=== PATIENT | female | born 1990 | race Caucasian/White ===

== ENCOUNTER 2020-03-15 11:56 | Observation (INO) | payer OTHER, SELFPAY ==
--- NOTE | 2020-03-15 12:37 | PC.NURSE ---
Dr Ruth Gagnon notified of adm for c/o of Palpitations. Patient states that she called the office and was sent here for evaluation. Order to obtain FHT's and send patient to ER for Evaluation.
--- NOTE | 2020-03-15 13:41 | PC.NURSE ---
1237 - T's 145 per Doppler
--- NOTE | 2020-03-17 16:46 | PM.OBTRLD ---
OB - Triage/Final Diagnosis Visit Information Reason for evaluation: other (palpitations)
--- NOTE | 2020-03-23 13:25 | PM.OBTRLD ---
OB - Triage/Final Diagnosis Visit Information Reason for evaluation: other ( heart palpitations during )
== END 2020-03-15 13:00 | disposition other institution (70) ==
PROVIDERS: Admitting Provider Obstetrics & Gynecology; Visit Provider Obstetrics & Gynecology
DX: R00.2 Palpitations (principal)
CPT/HCPCS: G0378; G0379

== ENCOUNTER 2020-03-15 12:47 | Emergency (ER) | payer OTHER, SELFPAY ==
--- NOTE | 2020-03-15 12:56 | ECG_ITS ---
Measurements Intervals [place] Rate: 85 P: 12 RI: 131 QRS: 14 QRSD: 81 T: 23 QT: 342 QTc: 407 Interpretive Statements SINUS RHYTHM BASELINE WANDER- I, II, V4-V6 NORMAL ECG Electronically Signed On 03-15-2020 13:04:52 CDT by Lukas Ayala D.O.
[2020-03-15 13:01] VITALS: BP 113/57; PULSE 88; RESP 18; TEMP 36.9; O2SAT 100
[2020-03-15 13:27] LABS: Basophils Percent Auto 0.3 % (0.2-1.2); Eosinophils Absolute Auto 0.1 K/mm3 (0-0.3); Hematocrit 33.4 % (37.0-47.0); Hemoglobin 11.8 g/dL (12.0-15.0); Immature Granulocyte Absolute 0.07 K/mm3 (0.00-0.031); Immature Granulocyte Percent A 0.7 % (0-0.5); Lymphocytes Absolute Auto 1.68 K/mm3 (0.9-3.2); Lymphocytes Percent Auto 16.8 % (18.3-44.2); Mean Corpuscular HGB Conc 35.3 g/dl (32-36); Mean Corpuscular Hemoglobin 33.1 pg (26-34); Mean Corpuscular Volume 93.6 fl (80-100); Mean Platelet Volume 10.5 fl (7.4-10.4); Monocytes Absolute Auto 0.5 K/mm3 (0.1-0.6); Monocytes Percent Auto 5.1 % (2.6-8.5); Neutrophils Absolute Auto 7.6 K/mm3 (1.3-6.7); Neutrophils Percent Auto 76.1 % (45.5-73.1); Platelet Count Result 266 k/mm3 (150-375); Red Blood Count 3.57 M/mm3 (4.2-5.4); Red Cell Distribution Width 12.9 % (11.5-14.5)
[2020-03-15 13:40] LABS: Alanine Aminotransferase 21 U/L (4-35); Albumin Level 4.2 g/dL (3.5-5.1); Alkaline Phosphatase 46 U/L (38-126); Aspartate Amino Transferase 18 U/L (14-36); Bilirubin,Total 0.3 mg/dL (0.2-1.3); Blood Urea Nitrogen 7 mg/dL (7-17); Calcium 8.9 mg/dL (8.4-10.2); Carbon Dioxide 24 mmol/L (22-30); Chloride 104 mmol/L (98-107); Estimated CRCL calculation 162 ml/min; Estimated Glomerular Filt Rate > 60; Glucose 81 mg/dL (65-105); Magnesium 1.9 mg/dL (1.6-2.3); Potassium 3.8 mmol/L (3.4-5.0); Sodium 135 mmol/L (137-145)
[2020-03-15 13:42] LABS: Add Urine Microscopic? YES; Appearance Urine Clear (Clear); Bacteria Urine 4+ /hpf; Bilirubin Urine Negative (Negative); Blood Urine Negative (Negative); Color Urine Straw (Yellow); Glucose Urine UA Negative (Negative); Ketones Urine Negative (Negative); Leukocyte Esterase Ur 1+ LEU/UL (Negative); Mucus Urine Rare /lpf; Nitrate Urine Negative (Negative); Protein Urine Negative (Negative); RBC Urine 0-2 /hpf (0-2); Specific Grav Ur 1.008 (1.001-1.035); Squamous Epithelial Cell Urine Few /hpf (Few); Urobilinogen Urine Negative mg/dL (<2.0)
[2020-03-15 13:53] VITALS: BP 113/79; PULSE 89; RESP 12; O2SAT 100
[2020-03-15 14:11] LABS: Thyroid Stimulating Hormone 0.568 uIU/mL (0.465-4.680)
--- NOTE | 2020-03-15 15:12 | ED.ARRPALP ---
HPI - Arrhythmia/Palpitations General Chief Complaint: Arrhythmia/Palpitations Stated Complaint: Heart Palpitations from OB Time Seen by Provider: 03/15/20 14:44 Source: patient Mode of arrival: ambulatory Limitations: no limitations History of Present Illness HPI narrative: This is a 29 year old about 20 weeks that presents to the ER for palpitations x 3 days. Reports she has had palpitations a couple of times over the last couple of days. They are non sustained and do not cause any chest pain, lightheadedness or shortness of breath. Otherwise has no complaints. Denies fever, pelvic cramping or vaginal bleeding. Related Data Allergies Allergy/AdvReac Type Severity Reaction Status Date / Time No Known Allergies Allergy Verified 03/15/20 13:51 Review of Systems Review of Systems: Narrative: CONSTITUTIONAL: Denies fever CARDIOVASCULAR: Reports palpitations. Denies chest pain, or edema. RESPIRATORY: Denies dyspnea. GASTROINTESTINAL: Denies abdominal pain GENITOURINARY: Denies dysuria or hematuria. All systems reviewed & are unremarkable except as noted in HPI and below PMFSH Social History Social History (Updated 03/15/20 @ 15:15 by Erinn Michael PA-C) Smoking status: Never smoker Substance use: never Exam Narrative: Exam Narrative: GENERAL: Well-appearing, well-nourished, and in no acute distress. HEAD: Normocephalic, atraumatic. EYES: EOMI. NECK: No carotid bruits or JVD CHEST: Clear to auscultation. No respiratory distress. No wheezes rales or rhonchi HEART: Regular rate and rhythm. No murmur heard. Normal peripheral pulses. EXTREMITIES: Normal range of motion. No edema. SKIN: Warm, dry, no rash. NEURO: No focal deficits. Alert and oriented x3. PSYCH: Normal mood and affect Course Consultations Consultation #1: Spoke with patient's OB about work-up (Dr. Hamilton). Reports palpitations can be very common in mid and suspect these will resolve on their own. Would like her to stop caffeine use to see if this helps. Will follow-up with patient in clinic. Date: 03/15/20 Time: 15:50 Vital Signs Vital signs: Vital Signs Temperature 98.5 F 03/15/20 13:01 Pulse Rate 88 03/15/20 13:01 Respiratory Rate 18 03/15/20 13:01 Blood Pressure 113/57 L 03/15/20 13:01 Pulse Oximetry 100 03/15/20 13:01 Temperature 98.5 F 03/15/20 13:01 Pulse Rate 89 03/15/20 13:53 Respiratory Rate 12 03/15/20 13:53 Blood Pressure 113/79 03/15/20 13:53 Pulse Oximetry 100 03/15/20 13:53 MDM - Arrhythmia/Palpitations MDM Narrative Medical decision making narrative: Patient presents to the emergency department for intermittent palpitations over the last couple of days. These do not seem sustained and patient does not report any chest pain, shortness of breath or lightheadedness with them. Vitals are normal. Patient has been in sinus rhythm while in the ED. CBC with mild normocytic anemia. Metabolic panel without acute changes. TSH is normal. UA with a few white blood cells and bacteria. Patient will be started on an antibiotic for asymptomatic bacteriuria of . EKG is normal. Patient updated on case findings. Spoke with patient's OB about work-up. Reports palpitations can be very common in mid and suspect these will resolve on their own. Would like her to stop caffeine use to see if this helps. Will follow-up with patient in clinic. Patient is stable and felt appropriate for further outpatient evaluation. She was given warnings to return to the ER Lab Data Attestation: I reviewed the patient's lab results. Result diagrams: 03/15/20 13:11 03/15/20 13:11 Labs: Lab Results 03/15/20 03/15/20 03/15/20 Range/Units 13:11 13:11 13:11 WBC 10.0 (4.5-10.0) K/mm3 RBC 3.57 L (4.2-5.4) M/mm3 Hgb 11.8 L (12.0-15.0) g/dL Hct 33.4 L (37.0-47.0) % MCV 93.6 (80-100) fl MCH 33.1 (26-34) pg MCHC 35.3 (32-3
[2020-03-15 15:57] VITALS: BP 103/50; PULSE 92; RESP 19; O2SAT 100
== END 2020-03-15 15:58 | disposition home or self-care (01) ==
PROVIDERS: Emergency Provider Emergency Medicine
DX: O26.892 Other specified pregnancy related conditions, second trimester (principal); R00.2 Palpitations; Z3A.20 20 weeks gestation of pregnancy
CPT/HCPCS: 36415; 80053; 81001; 83735; 84443; 85025; 93005; 99283

== ENCOUNTER 2020-05-14 09:30 | Outpatient (RCR) | payer OTHER, SELFPAY ==
[2020-05-14] MEDS: RHO(D) IMMUNE GLOBULIN 300 MCG SYRINGE IM (15:49)
== END 2020-08-12 23:59 | disposition home or self-care (01) ==
LOC: ANHLAB 09:30
PROVIDERS: Visit Provider Obstetrics & Gynecology
DX: Z29.13 Encounter for prophylactic Rho(D) immune globulin (principal); O36.0990 Maternal care for other rhesus isoimmunization, unspecified trimester, not applicable or unspecified; Z3A.00 Weeks of gestation of pregnancy not specified
CPT/HCPCS: 36415; 85461; 90384; 96372; J2790

== ENCOUNTER 2020-07-08 10:23 | Outpatient (CLI) | payer OTHER, SELFPAY ==
--- NOTE | ~2020-07-08 | US_ITS ---
EXAMINATION: US OB BPP wo non-stress DATE: 07/08/2020 11:58 INDICATION: Decelerations during third trimester TECHNIQUE: Real-time pelvic ultrasound was performed. The interpreting radiologist was not present fo r the study. COMPARISON: None. FINDINGS: There is a single living fetus in vertex presentation. The placenta is posterior/fundal. heart rate is 126 beats per minute (bpm). Biophysical profile performed by the technologist: breathing (30 sec sustained breathing in 30 minutes): 2 out of 2 movement (3 gross body movements in 30 minutes): 2 out of 2 tone (one episode of wgeadel-iitcnmvjg-[id number] limb movement): 2 out of 2 Amniotic fluid pocket (2 cm): 2 out of 2 Total score: 8 out of 8 IMPRESSION: 1. Single living fetus in vertex presentation. 2. Biophysical profile 8 out of 8. Reviewed, dictated and finalized at location B.
[2020-07-08 11:31] VITALS: BP 126/87; PULSE 96
--- NOTE | 2020-07-08 12:16 | PC.NURSE ---
1117- called,informed pt came in for leaking fluid. ROM plus was negative and SVE was closed. Informed pt had a 6 minute contraction with a decel, NST reactive after decel. Order received to do BPP and if 8/8 may be discharged home with labor precautions
== END 2020-07-08 10:24 | disposition home or self-care (01) ==
LOC: ANHOBOP 11:24
PROVIDERS: Visit Provider Obstetrics & Gynecology
DX: O41.8X90 Other specified disorders of amniotic fluid and membranes, unspecified trimester, not applicable or unspecified (principal)
CPT/HCPCS: 59025; 76819; 84112

== ENCOUNTER 2020-07-25 01:31 | Inpatient (IN) | payer OTHER, SELFPAY ==
[2020-07-25] VITALS (112 sets, daily range): BP systolic 92–159; BP diastolic 49–140; PULSE 63–271; RESP 16; TEMP 36.3–37.4; O2SAT 81–100; BMI 30.6
--- NOTE | 2020-07-25 01:31 | LDADM ---
This patient, Dina Valadez, was admitted to Labor/Delivery/Recovery 107 on 07/25/20 at 01:31. Plans for labor, pain management and were discussed with patient. Patient/family oriented to hospital policies and general routines including ID bracelet, bed and alarms, visiting hours, pain management, procedures, bathroom and other care routines, personal items, smoking policy, room service/diet and guest tray routines, infant security routines, and visiting hours. Patient/Family are encouraged to report perceived risks to care and to ask questions if they do not understand what they are told or what they should do. See OBIX for further documentation.
[2020-07-25 02:16] LABS: Basophils Absolute Auto 0.1 K/mm3 (0.0-0.1); Basophils Percent Auto 0.4 % (0.2-1.2); Eosinophils Absolute Auto 0.3 K/mm3 (0-0.3); Eosinophils Percent Auto 1.8 % (0-4.4); Hematocrit 37.8 % (37.0-47.0); Hemoglobin 13.2 g/dL (12.0-15.0); Immature Granulocyte Absolute 0.16 K/mm3 (0.00-0.031); Immature Granulocyte Percent A 1.1 % (0-0.5); Lymphocytes Absolute Auto 3.06 K/mm3 (0.9-3.2); Lymphocytes Percent Auto 21.7 % (18.3-44.2); Mean Corpuscular HGB Conc 34.9 g/dl (32-36); Mean Corpuscular Hemoglobin 32.7 pg (26-34); Mean Corpuscular Volume 93.6 fl (80-100); Mean Platelet Volume 12.1 fl (7.4-10.4); Monocytes Absolute Auto 1.1 K/mm3 (0.1-0.6); Monocytes Percent Auto 7.5 % (2.6-8.5); Neutrophils Absolute Auto 9.5 K/mm3 (1.3-6.7); Neutrophils Percent Auto 67.5 % (45.5-73.1); Platelet Count Result 202 k/mm3 (150-375); Red Blood Count 4.04 M/mm3 (4.2-5.4); White Blood Count 14.1 K/mm3 (4.5-10.0)
[2020-07-25] MEDS: LACTATED RINGERS 1,000 ML 125 ML IV CONT ×2 (02:18→05:28)
--- NOTE | 2020-07-25 02:51 | WPDANESEPP ---
Anes - Eval Pre Procedure Procedure: labor epidural Date/Time: 07/25/20 02:51 Surgeon: luis carlos Pre Op Diagnosis: Ernesto mercado Patient Data Age: 29 Gender: F Height: 1.68 m Weight: 86 kg Last Vital Signs Pulse 76 07/25/20 02:30 BP 126/110 H 07/25/20 02:45 Allergies Allergy/AdvReac Type Severity Reaction Status Date / Time No Known Allergies Allergy Verified 07/06/20 15:40 Home Medications Medication Instructions Recorded Confirmed Type PNV cmb#95-ferrous fumarate-FA 1 tablet PO DAILY 07/06/20 07/25/20 History [] fluticasone propionate [Flonase 1 spray INTRANASAL DAILY 07/25/20 07/25/20 History Allergy Relief] Laboratory Tests 07/25/20 07/25/20 02:09 02:09 WBC 14.1 K/mm3 H K/mm3 (4.5-10.0) RBC 4.04 M/mm3 L M/mm3 (4.2-5.4) Hgb 13.2 g/dL g/dL (12.0-15.0) Hct 37.8 % % (37.0-47.0) MCV 93.6 fl fl (80-100) MCH 32.7 pg pg (26-34) MCHC 34.9 g/dl g/dl (32-36) RDW 13.0 % % (11.5-14.5) Plt Count 202 k/mm3 k/mm3 (150-375) MPV 12.1 fl H fl (7.4-10.4) Immature Gran % (Auto) 1.1 % H % (0-0.5) Neut % (Auto) 67.5 % % (45.5-73.1) Lymph % (Auto) 21.7 % % (18.3-44.2) [place] % (Auto) 7.5 % % (2.6-8.5) Eos % (Auto) 1.8 % % (0-4.4) Baso % (Auto) 0.4 % % (0.2-1.2) Lymph # (Auto) 3.06 K/mm3 K/mm3 (0.9-3.2) [place] # (Auto) 1.1 K/mm3 H K/mm3 (0.1-0.6) Eos # (Auto) 0.3 K/mm3 K/mm3 (0-0.3) Baso # (Auto) 0.1 K/mm3 K/mm3 (0.0-0.1) Abs Immat Gran (auto) 0.16 K/mm3 H K/mm3 (0.00-0.031) Absolute Neuts (auto) 9.5 K/mm3 H K/mm3 (1.3-6.7) Absolute Nucleated RBC 0.0 K/mm3 K/mm3 (0.0-0.012) Nucleated RBC % 0.0 % % (0.0-0.2) RPR Pending Patient hx anesthesia problems: none Family hx anesthesia problems: none [facility] Social History Social History (Updated 03/15/20 @ 15:15 by Erinn Michael PA-C) Smoking status: Never smoker Substance use: never Spiritual care concerns: No Exam Day of Procedure 07/25/20 02:51
--- NOTE | 2020-07-25 06:03 | WPDOBADMIT ---
Obstetrics - Admit Note Admission Note: record reviewed. Additions to the history and/or subsequent changes in the physical findings follow. 29 y/o G1 at 39 weeks here with gush of clear fluid at home. SROM was diagnosed. She was admitted and received an epidural. Labor has progressed rapidly and without stimulation. AVSS NST reactive TOCO: contractions every 2-4 min ABD soft, nontender, gravid, vertex EXT nontender Cervix C/+2 A: IUP at term with labor. P: Begin pushing.
[2020-07-25] MEDS: OXYTOCIN 30 UNITS/NS 500 ML 30 UNITS/500 ML BAG 999 UNITS IV CONT (06:40)
--- NOTE | 2020-07-25 06:57 | P.PCNOB_ITS ---
OB - Delivery Note Procedure Delivery date: 07/25/20 Procedure: Induction method: none Delivery monitor: external FHT and external uterine Route of delivery: Laceration description: Perineal - 2nd Degree Delivery repair: vicryl (3-0) Specimen: Yes (cord blood, placenta) Estimated blood loss (mL): 165 Anesthesia type: Epidural Disposition: PACU Complications: None Narrative: 29 y/o G1 at 39 weeks gestation who presented to the hospital with complaint of gush of clear fluid. SROM was diagnosed and she was admitted. She received an epidural for pain control. Her labor progressed and her cervix dilated completely. She pushed with good effort and delivered the 's head to the perineum, followed by the body. The nose and mouth were bulb suctioned. After a delay, the cord was clamped and cut. The was handed off the field. Cord blood was collected. The placenta delivered spontaneously and was grossly normal in appearance. The usual 3 vessel cord was noted. A second degree midline perineal laceration was sustained. This was reapproximated using 3 0 Vicryl in the usual layered fashion. Excellent hemostasis resulted as did excellent reapproximation of the normal anatomy. Needle and instrument counts were correct. The patient was taken to recovery room in stable condition. The went to the nursery in stable condition. I was present and scrubbed for the entire delivery. [place] Baby Date of : 07/25/20 Time of : 06:35 Weeks of gestation at delivery: 39 gender: Male Weight (pounds): 7 Weight (ounces): 5 presentation: vertex position: Left Occiput Anterior Placenta delivery description: Spontaneous and Normal Configuration cord vessel description: 3 Vessels score one minute: 9 score five minutes: 9
--- NOTE | 2020-07-25 06:59 | PM.OBDSVD ---
DS: Admitting Diagnosis Admitting Diagnosis Admitting Diagnosis: SROM DS: Discharge Diagnosis Discharge Diagnosis (1) (normal spontaneous vaginal delivery): Code(s): O80 - Encounter for full-term uncomplicated delivery Status: Acute OB - DS: Summary OB Procedures : None OB Procedures Intrapartum: Spontaneous Vag Delivery OB Procedures: : None Time Spent with Patient Time attestation: Total time spent providing and/or coordinating discharge services: DS: Data Data Completed and Pending Labs on day of discharge: Labs from last 24 hours 07/25/20 07/25/20 07/25/20 02:09 02:09 02:09 WBC 14.1 H RBC 4.04 L Hgb 13.2 Hct 37.8 MCV 93.6 MCH 32.7 MCHC 34.9 RDW 13.0 Plt Count 202 MPV 12.1 H Immature Gran % (Auto) 1.1 H Neut % (Auto) 67.5 Lymph % (Auto) 21.7 [place] % (Auto) 7.5 Eos % (Auto) 1.8 Baso % (Auto) 0.4 Lymph # (Auto) 3.06 [place] # (Auto) 1.1 H Eos # (Auto) 0.3 Baso # (Auto) 0.1 Abs Immat Gran (auto) 0.16 H Absolute Neuts (auto) 9.5 H Absolute Nucleated RBC 0.0 Nucleated RBC % 0.0 RPR Pending Blood Type A Negative Antibody Screen Negative Discharge Plan Discharge Attending physician on discharge: Fer Hamilton Discharging Clinician: Fer Hamilton Patient Disposition: Home, Self-Care Activity: pelvic rest Diet: regular Discharge Instructions: Call or return if temperature above 100.4? F, increased abdominal pain, increased vaginal bleeding or any new problems. Stand Alone Forms: General Discharge Information Follow-up/Referrals: Fer Hamilton MD [Physician] - (6 weeks) Discharge Medications: New ibuprofen 600 mg tablet 600 mg PO Q6H PRN (Reason: cramps) Qty: 30 RF: 0 No Action PNV cmb#95-ferrous fumarate-FA [] 28 mg iron- 800 mcg Tablet 1 tablet PO DAILY RF: 0 fluticasone propionate [Flonase Allergy Relief] 50 mcg/actuation [place],Suspension 1 spray INTRANASAL DAILY RF: 0 Date of admission: 07/25/20 01:31 Primary Care Provider: PHYSICIAN,MENTAL MEASUREMENTS TEACHER Admitting Provider: Fer Hamilton Attending physician on admission: Fer Hamilton
[2020-07-25] MEDS: OXYTOCIN 30 UNITS/NS 500 ML 30 UNITS/500 ML BAG 125 UNITS IV CONT (07:16)
[2020-07-25] MEDS: IBUPROFEN 600 MG TABLET PO ×2 (09:20→16:08)
--- NOTE | 2020-07-25 17:37 | PC.NURSE ---
1022 Pt admitted to room 282 from labor and delivery after vaginal delivery of viable male at [address] Hamilton. Mother is a and is choosing to breast feed infant. /FOB present; Couple oriented to room, staffing and procedures; admission folder reviewed; Pt's VSS and assessment WNL.
[2020-07-26] MEDS: IBUPROFEN 600 MG TABLET PO ×3 (01:58→14:30)
[2020-07-26] MEDS: DOCUSATE SODIUM 100 MG CAPSULE PO (02:01)
[2020-07-26 04:31] LABS: Hematocrit 30.4 % (37.0-47.0); Hemoglobin 10.5 g/dL (12.0-15.0)
[2020-07-26 07:45] VITALS: BP 114/73; PULSE 85; RESP 18; TEMP 36.3; O2SAT 100
[2020-07-26] MEDS: MULTIVIT/MIN/PREN/FOL AC/IRON TABLET 1 TAB PO (07:45)
[2020-07-26] MEDS: DIBUCAINE 1% OINTMENT 30 GM TUBE 1 APPLIC TOPICAL (07:48)
--- NOTE | 2020-07-26 08:31 | WPDANLDPN2 ---
Anes-Prog Note L&D Date/Time: 07/26/20 08:31 Comfortable throughout: labor and delivery Neuraxial method: epidural Epidural/Spinal procedure site: clean & non-tender Neuro status: Neuro function grossly intact. Cardiovascular status: normal Respiratory status: normal Airway patency: baseline Mental status: baseline Post-Op hydration status: normal Vital Signs: Last Vital Signs Temp 36.7 C 07/25/20 18:33 Pulse 77 07/25/20 18:33 Resp 16 07/25/20 18:33 BP 112/69 07/25/20 18:33 Pulse Ox 99 07/25/20 10:30 Pain score (VAS): 11/07 I/O: Intake & Output 07/25/20 07/26/20 07/26/20 23:59 07:59 15:59 Intake Total 500 Balance 500 Post-procedural complaints: none Patient feedback: Patient satisfied with anesthetic care.
[2020-07-26] MEDS: TETANUS,DIPHTHERIA,AC PERTUSSIS ADULT (0.5 ML) BOOSTRIX IM (11:12)
[2020-07-26 11:43] LABS: Rapid Plasma Reagin Non-Reactive (NonReactive)
--- NOTE | 2020-07-26 12:00 | PM.OBPNVD ---
OB - PN: Subj Subjective Date/time seen: 07/26/20 12:00 Narrative: Pain OK. Would like circumcision for son. OB - PN: Obj Data Labs CBC & Chem 7: 07/26/20 04:03 Labs: Laboratory Results - last 24 hr 07/25/20 07/26/20 02:09 04:03 Hgb 10.5 L Hct 30.4 L RPR Non-reactive OB - PN A/P Plan Comments: A: PPD#1, doing well. P: Routine care. Reviewed circ. Exam Psych: Other: AVSS ABD soft, nontender, fundus firm EXT nontender
[2020-07-26 19:15] VITALS: BP 123/78; PULSE 83; RESP 18; TEMP 36.6; O2SAT 98
[2020-07-26] MEDS: ACETAMINOPHEN 325 MG TABLET 650 MG PO (19:52)
[2020-07-27] MEDS: IBUPROFEN 600 MG TABLET PO (01:24)
[2020-07-27 08:10] VITALS: BP 123/71; PULSE 84; RESP 16; TEMP 37.2; O2SAT 100
--- NOTE | 2020-07-27 08:51 | P.PNOB_ITS ---
OB - PN: Subj Subjective Date/time seen: 07/27/20 08:51 Narrative: Pain OK. Would like to go home. Baby's blood type Aneg. OB - PN: Obj Data Labs CBC & Chem 7: 07/26/20 04:03 Labs: Laboratory Results - last 24 hr 07/25/20 02:09 RPR Non-reactive OB - PN A/P Plan Comments: A: PPD#2, doing well. P: Home to f/u 6 weeks. Exam 2 Psych: Other: AVSS ABD soft, nontender, fundus firm EXT nontender
[2020-07-29 08:26] VITALS: BP 136/88; PULSE 82; RESP 18; TEMP 36.7; O2SAT 100
== END 2020-07-27 10:51 | disposition home or self-care (01) | DRG 807 ==
LOC: ANHLDR 07:00 → ANHOB2 10:25
PROVIDERS: Admitting Provider Obstetrics & Gynecology; Visit Provider Obstetrics & Gynecology
DX: O62.3 Precipitate labor (principal); Z37.0 Single live birth; Z3A.39 39 weeks gestation of pregnancy; O70.1 Second degree perineal laceration during delivery
CPT/HCPCS: 36415; 85014; 85018; 85025; 86592; 86850; 86900; 86901; 90715; A9270; J2590; J2795; J7120

== ENCOUNTER 2021-02-07 16:50 | Emergency (ER) | payer OTHER, SELFPAY ==
--- NOTE | ~2021-02-07 | XR_ITS ---
XR chest 2V DATE: 02/07/2021 17:37 INDICATION: Dizziness for one week TECHNIQUE: PA and lateral views COMPARISON: None FINDINGS: Normal heart size. No hilar or mediastinal enlargement. No pulmonary infiltrate or consolid ation, pleural effusion or pulmonary vascular congestion or pneumothorax. Included skeletal structures are unremarkable. IMPRESSION: Negative chest Reviewed, dictated and finalized at location A. IMPRESSION: Negative chest
--- NOTE | ~2021-02-07 | CT_ITS ---
EXAMINATION: CT brain wo con DATE: 02/07/2021 18:03 INDICATION: Fall. Loss of consciousness. TECHNIQUE: Computed tomography (CT) of the head was performed without intravenous contrast. The mA wa s adjusted according to patient size. Iterative reconstruction technique was employed. Exam dose: 68 1.00 mGy-cm total exam DLP. COMPARISON: None FINDINGS: No intracranial mass lesion or hemorrhage or cerebrovascular accident is evident. No midlin e shift or mass effect effect. Normal ventricular size. Normal urbano-white matter differentiation. No subdural or epidural hematoma. No fracture or bone destruction of the cranial vault. Included paranasal sinuses and mastoid air cell s IMPRESSION: No significant abnormality Reviewed, dictated and finalized at Location A. Reviewed, dictated and finalized at location A. IMPRESSION: No significant abnormality
--- NOTE | 2021-02-07 17:03 | ECG_ITS ---
Measurements Intervals [place] Rate: 66 P: 40 NM: 131 QRS: 31 QRSD: 89 T: 41 QT: 399 QTc: 420 Interpretive Statements SINUS RHYTHM NORMAL ECG Electronically Signed On 02-08-2021 8:00:37 CDT by Lukas Ayala D.O.
[2021-02-07 17:08] VITALS: BP 121/64; PULSE 98; RESP 18; TEMP 37.2; O2SAT 100
[2021-02-07 17:22] LABS: Basophils Absolute Auto 0.1 K/mm3 (0.0-0.1); Basophils Percent Auto 0.8 % (0.2-1.2); Eosinophils Absolute Auto 0.2 K/mm3 (0-0.3); Eosinophils Percent Auto 3.5 % (0-4.4); Hematocrit 39.9 % (37.0-47.0); Hemoglobin 13.6 g/dL (12.0-15.0); Immature Granulocyte Absolute 0.01 K/mm3 (0.00-0.031); Immature Granulocyte Percent A 0.2 % (0-0.5); Lymphocytes Absolute Auto 1.61 K/mm3 (0.9-3.2); Lymphocytes Percent Auto 25.3 % (18.3-44.2); Mean Corpuscular HGB Conc 34.1 g/dl (32-36); Mean Corpuscular Hemoglobin 31.3 pg (26-34); Mean Corpuscular Volume 91.7 fl (80-100); Mean Platelet Volume 10.1 fl (7.4-10.4); Monocytes Absolute Auto 0.5 K/mm3 (0.1-0.6); Monocytes Percent Auto 7.5 % (2.6-8.5); Neutrophils Percent Auto 62.7 % (45.5-73.1); Platelet Count Result 305 k/mm3 (150-375); Red Blood Count 4.35 M/mm3 (4.2-5.4); Red Cell Distribution Width 12.8 % (11.5-14.5); White Blood Count 6.4 K/mm3 (4.5-10.0)
[2021-02-07 17:35] LABS: Alanine Aminotransferase 20 U/L (4-35); Albumin Level 4.7 g/dL (3.5-5.1); Alkaline Phosphatase 60 U/L (38-126); Anion Gap 7 mmol/L (8-16); Aspartate Amino Transferase 20 U/L (14-36); Bilirubin,Total 0.7 mg/dL (0.2-1.3); Blood Urea Nitrogen 11 mg/dL (7-17); Calcium 9.1 mg/dL (8.4-10.2); Carbon Dioxide 28 mmol/L (22-30); Chloride 105 mmol/L (98-107); Estimated CRCL calculation 108 ml/min; Estimated Glomerular Filt Rate > 60; Glucose 86 mg/dL (65-105); Potassium 4.1 mmol/L (3.4-5.0); Sodium 140 mmol/L (137-145)
[2021-02-07 18:29] LABS: Add Urine Microscopic? YES; Appearance Urine Cloudy (Clear); Bilirubin Urine Negative (Negative); Blood Urine Negative (Negative); Color Urine Yellow (Yellow); Glucose Urine UA Negative (Negative); Ketones Urine Trace mg/dL (Negative); Leukocyte Esterase Ur 1+ LEU/UL (Negative); Nitrate Urine Negative (Negative); Protein Urine Negative (Negative); Specific Grav Ur 1.006 (1.001-1.035); Urobilinogen Urine Negative mg/dL (<2.0)
--- NOTE | 2021-02-07 18:33 | ED.GENADULT ---
HPI - General Adult General Chief complaint: Dizziness Stated complaint: Fall, Dizzy Time Seen by Provider: 02/07/21 17:27 History of Present Illness HPI narrative: Patient is a 30-year-old female who presents to the ER with dizziness and fall. Patient was walking down the steps carrying laundry when she woke up at the bottom with her legs on the steps and her face on the ground. She reports she has been feeling dizzy for the last week since being started on Lexapro. She was started on this for depression which is been chronic and untreated but is worsened over the last 6 months since having her child. Patient had previously been having thoughts of self-harm but those are no longer present. She only really has sense of depression and worthlessness. No active plan. Her is present and keenly attentive to what has been going on with her. Patient reports since starting the medication she is also had decreased appetite and has not been eating this also correlates with when she stopped breast-feeding her son. After the fall today she is experiencing minor headache. No change in vision or hearing. She has no numbness or tingling to an arm or leg. She has some aching in her right elbow but maintains full range of motion. Patient denies any racing the heart or previous syncope. Related Data Home Medications Medication Instructions Recorded [facility]irmed [facility]FA 1 tablet PO DAILY 07/06/20 07/25/20 [] fluticasone propionate [Flonase 1 spray INTRANASAL DAILY 07/25/20 07/25/20 Allergy Relief] Allergies Allergy/AdvReac Type Severity Reaction Status Date / Time No Known Allergies Allergy Verified 07/06/20 15:40 Review of Systems Review of Systems: All systems reviewed & are unremarkable except as noted in HPI and below Constitutional: Constitutional: Denies chills, Denies fever(s) and Denies weakness Cardiovascular: Cardiovascular: Denies chest pain and Denies rapid heart rate Gastrointestinal: Gastrointestinal: Denies abdominal pain, Denies nausea and Denies vomiting Neurologic: Reports dizziness, Reports syncope, Reports headache(s), Denies focal weakness and Denies numbness Psychiatric: Psychiatric: Denies anxiety, Reports depression, Denies homicidal ideation and Denies suicidal ideation [facility] Past Medical History Medical History (Updated 02/07/21 @ 20:43 by Kevon Ledezma MD) Depression Surgical History Surgical History (Updated 02/07/21 @ 18:36 by Kevon Ledezma MD) No pertinent past surgical history Family History Family History Grandparent Heart disease TIA (transient ischemic attack) Father Diabetes type 2, controlled Mother Familial tremor Social History Social History (Updated 03/15/20 @ 15:15 by Erinn Michael PA-C) Smoking status: Never smoker Substance use: never Spiritual care concerns: No Exam Narrative: Exam Narrative: GENERAL: Well-appearing, well-nourished, and in no acute distress. HEAD: Normocephalic, atraumatic. EYES: PERRL and EOMI. CHEST: Clear to auscultation. No respiratory distress. HEART: Regular rate and rhythm. Normal peripheral pulses. ABDOMEN: Soft, nontender, nondistended. EXTREMITIES: Normal range of motion. No edema. SKIN: Warm, dry, no rash. NEURO: Alert and oriented x3. PSYCH: Depressed mood with appropriate insight, tearful. Course Course Emergency Course: Improving with IV fluids. Would recommend discontinuing Lexapro and talking to her PCP. Also treat UTI with Macrobid. First dose here. Vital Signs Vital signs: Vital Signs Temperature 98.9 F 02/07/21 17:08 Pulse Rate 98 02/07/21 17:08 Respiratory Rate 18 02/07/21 17:08 Blood Pressure 121/64 02/07/21 17:08 Pulse Oximetry 100 02/07/21 17:08 Temperature 98.9 F 02/07/21 17:08 Pulse Rate 86 02/07/21 19:03 Respiratory Rate 18 02/07/21 17:08 Blood Pressure 11
[2021-02-07 18:49] LABS: Squamous Epithelial Cell Urine Moderate /hpf (Few); WBC Urine 16-20 /hpf (0-3)
[2021-02-07 18:50] LABS: Bacteria Urine Trace /hpf
[2021-02-07 18:59] VITALS: BP 112/62; PULSE 57
[2021-02-07 19:02] VITALS: BP 113/71; PULSE 65
[2021-02-07 19:03] VITALS: BP 116/73; PULSE 86
[2021-02-07] MEDS: SODIUM CHLORIDE 0.9% IV 1,000 ML 999 ML IV CONT (19:47)
[2021-02-07] MEDS: NITROFURANTOIN MONOHYD MACROCR 100 MG CAP PO (20:51)
[2021-02-07 20:58] VITALS: BP 100/70; PULSE 60; RESP 16; O2SAT 100
== END 2021-02-07 21:00 | disposition home or self-care (01) ==
PROVIDERS: Emergency Provider Emergency Medicine; PCP Nurse Practitioner Family
DX: R42 Dizziness and giddiness (principal); N39.0 Urinary tract infection, site not specified; F32.9 Major depressive disorder, single episode, unspecified; W10.9XXA Fall (on) (from) unspecified stairs and steps, initial encounter
CPT/HCPCS: 36415; 70450; 71046; 80053; 81001; 85025; 87086; 93005; 96360; 99284; A9270; J7030

== ENCOUNTER 2021-06-12 08:00 | Outpatient (RCR) | payer OTHER, SELFPAY ==
[2021-06-12] MEDS: RHO(D) IMMUNE GLOBULIN 300 MCG/2 ML SYRINGE IM (08:58)
== END 2021-09-07 23:59 | disposition home or self-care (01) ==
LOC: ANHLAB 08:00
PROVIDERS: PCP Nurse Practitioner Family; Visit Provider Obstetrics & Gynecology
DX: O03.9 Complete or unspecified spontaneous abortion without complication (principal); Z29.13 Encounter for prophylactic Rho(D) immune globulin; O36.0190 Maternal care for anti-D [Rh] antibodies, unspecified trimester, not applicable or unspecified; Z3A.00 Weeks of gestation of pregnancy not specified
CPT/HCPCS: 36415; 84702; 85461; 90384; 96372; J2790

== ENCOUNTER 2025-08-20 15:27 | Outpatient (CLI) | payer OTHER, SELFPAY ==
--- OUTSIDE RECORDS SUMMARY | 2025-08-20 16:28 | XMS_ITS | Clinical Summary ---
Author Organization [facility] [employer] Address [address] [place] [address] Care Team Providers Care [employer] Network Architect Name Role Phone Barbara Ibarra MD Primary Care Provider [phone] Source Comments [facility] [employer],non-owned Affiliates and Associated Physician Practices is amultiple site organization consisting of ambulatory clinics and hospital sitesin [place], [place], [place] and [place]. This disclosure is being madepursuant to the Care Everywhere program and may not contain all information available regarding this patient. Last updated 18.[facility] [employer] Allergies No known active allergies Medications * This document contains information received from the source organization and may not represent a complete record from that organization. * Be aware that medications may not be up to date on this document. Alwaysverify current medications with the patient. traZODone (DESYREL) 50 MG tabletIndicatio ns:Insomnia Take 1 (one) tablet by mouth at bedtime Reasons: Trouble Sleeping 15 tablet 2 1 Active FLUoxetine (PROZAC) 40 MG capsuleIndicati ons:Major Depressive Disorder Take 1 (one) capsule by mouth once daily Reasons: Major Depressive Disorder 30 capsule 1 1 Active Active Problems Problem Noted Date Diagnosed Date Panic disorder 02/15/2021 Major depressive disorder, recurrent episode, se yashira 02/08/2021 Social History Tobacco Use Types Packs/Day Years Used Date Smoking Tobacco: Never Smokeless Tobacco: Never Alcohol Use Standard Drinks/Week Comments Not Currently 0 (1 standard drink = 0.6 oz pur e alcohol) PHQ-2 Answer Date Recorded PHQ2 TOTAL SCORE 2 04/12/2021 Comments Unknown Sex and Gender Information Value Date Recorded Sex Assigned at Not on file 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 Gender Identity Not on file Sexual Orientation Not on file Last Filed Vital Signs Vital Sign Reading Time Taken Comments Blood Pressure 114/73 02/15/2021 10:02 AM CDT Pulse 71 02/15/2021 10:02 AM CDT Temperature 35.7 C (96.2 F) 02/15/2021 10:02 AM CDT Respiratory Rate 17 02/15/2021 10:02 AM CDT Oxygen Saturation 100% 02/11/2021 6:53 AM CDT Inhaled Oxygen Concentration - - Weight 68 kg (150 lb) 02/15/2021 10:02 AM CDT Height 167.6 cm (5' 6) 02/15/2021 10:02 AM CDT Body Mass Index 24.21 02/15/2021 10:02 AM CDT Plan of Treatment Health Maintenance Due Date Last Done Comments HIV SCREENING 2004 HEPATITIS C SCREENING 10/17/2007 DTAP/TDAP/TD VACCINES (1 - Tdap) 2008 HEPATITIS B VACCINE (1 of 3 - 19+ 3-dose series) 2008 HPV VACCINE (1 - 3-dose SCDM series) 2016 DEPRESSION SCREENING 10/29/2024 COVID-19 VACCINE (1 - 2023-2 5 season) 2025 INFLUENZA VACCINE (#1) 2025 ZOSTER VACCINE (1 of 2) 2039 HIB VACCINE Aged Out No longer eligi ble based on patient's age to complete this topic MENINGOCOCCAL (Group B) VACC INE SHARED DECISION-MAKING Aged Out No longer eligibl e based on patient's age to complete this topic MENINGOCOCCAL GROUPS A/C/Y/W VACCINE Aged Out No longer eligible b ased on patient's age to complete this topic PNEUMOCOCCAL VACCINE Aged Out No long er eligible based on patient's age to complete this topic Insurance [facility] Advance Directives * Full Code (Latest Code Status on File) Date Activated Date Inactivated Comments 02/08/2021 5:22 PM 02/11/2021 3:30 PM * Full Code Date Activated Date Inactivated Comments 02/08/2021 3:30 PM 02/08/2021 5:03 PM Care Teams [employer] Architect Relationship Specialty Start Date End Date Barbara Ibarra MD [address] [place] [address] PCP - General 08/18/08
[2025-08-20 16:34] LABS: Thyroid Stimulating Hormone Reflex 0.375 uIU/mL (0.465-4.68)
[2025-08-20 17:05] LABS: Free T4 Free Thyroxine Reflex 1.18 ng/dL (0.78-2.19)
[2025-08-21 04:43] LABS: Total Triiodothyronine (T3) 1.14 NG/ML (0.82-1.58)
[2025-08-21 07:09] LABS: FSH 5.6 mIU/mL (.)
[2025-08-21 09:08] LABS: LH 5.9 mIU/mL (.)
== END 2025-08-20 15:28 | disposition home or self-care (01) ==
LOC: ANHLAB 15:28
PROVIDERS: Visit Provider Obstetrics & Gynecology
DX: N92.1 Excessive and frequent menstruation with irregular cycle (principal); N95.1 Menopausal and female climacteric states
CPT/HCPCS: 36415; 83001; 83002; 84439; 84443; 84480